=== PATIENT | male | born 1940 | race Caucasian/White ===

== ENCOUNTER 2023-01-09 12:39 | Emergency (ER) | payer MEDICARE, SELFPAY ==
[2023-01-09] VITALS (19 sets, daily range): BP systolic 123–170; BP diastolic 70–99; PULSE 62–75; RESP 13–32; TEMP 36.6; O2SAT 90–100; BMI 21.2
--- NOTE | 2023-01-09 13:09 | PC.NURSE ---
pT PRESENTS WITH INCREASING WEAKNESS OVER PAST WEEK. PT HAS BEEN HOSPITALIZED X 2 THIS YEAR .WITH INITIALLY, COVID PNA. THEN PNA. PT USES OXYGEN AT HOME SINCE HAVING COVID. PT HAS GOOD AIR ENTRY WITH CRACKLES LEFT POSTERIOR BASE
--- NOTE | 2023-01-09 13:19 | XR_ITS ---
The [address] [address] Patient Name: CODI RIVERA MRN: [id number] date: 1940 Sex: M Assigned Patient Location: ER Current Patient Location: ED.MAIN Accession/Order Number: [id number] Exam Date: 01/09/2023 14:20 Report Date: 01/09/2023 14:46 At the request of: KAIDEN REYNOSO Procedure: XR chest 1V EXAMINATION: XR chest 1V HISTORY: Shortness of breath COMPARISON: 08/27/2022, 07/22/2022 TECHNIQUE: AP portable FINDINGS: LUNGS: 1.4 cm nodule left midlung, indeterminate. VASCULATURE: No increased pulmonary vasculature. PLEURA: No pneumothorax, effusion, or pleural thickening. CARDIAC: No cardiomegaly or cardiac silhouette abnormality. MEDIASTINUM: No visible mass or adenopathy. Aortic atherosclerosis BONES: Mild degenerative disc disease and spondylosis without visible acute abnormalities. OTHER: Negative. IMPRESSION: Left lung nodule, indeterminate No focal infiltrate Electronically authenticated by: DANYA GOODWIN Date: 01/09/2023 14:46
--- NOTE | 2023-01-09 13:19 | ECG_ITS ---
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
--- NOTE | 2023-01-09 13:20 | CT_ITS ---
The [address] [address] Patient Name: CODI RIVERA MRN: [id number] date: 1940 Sex: M Assigned Patient Location: ED.MAIN Current Patient Location: Accession/Order Number: [id number] Exam Date: 01/09/2023 15:10 Report Date: 01/09/2023 15:55 At the request of: KAIDEN REYNOSO Procedure: CT abdomen pelvis w con EXAM: CT abdomen pelvis w con HISTORY: jaundice COMPARISON: None. TECHNIQUE: Axial CT images were obtained of the abdomen and pelvis with intravenous contrast. Multiplanar reconstructions were performed. ABDOMEN/PELVIS FINDINGS: Lower Chest: Emphysematous disease present in the lung bases. There is a small hiatal hernia. Liver: Normal enhancement and contour. Biliary/Gallbladder: Unremarkable. Pancreas: Unremarkable. Spleen: Unremarkable. Adrenal Glands: Unremarkable. Kidneys: Bilateral cysts are present in the kidneys, with the dominant cyst in lower pole the right kidney measuring 9.2 cm. A cyst in the medial aspect of the left kidney has intermediate internal density and measures 2.4 cm Gastrointestinal/Peritoneum: No acute abnormality. Mild colonic diverticulosis is present. The appendix is unremarkable. No free air or free fluid. Vascular: Extensive scattered atherosclerotic calcifications are present. Lymph Nodes: No enlarged lymph nodes by CT size criteria. Pelvic Organs: Postoperative changes of a prostatectomy with multiple surgical clips present in the region of the seminal vesicles, which likely have also been resected. Bladder: A rounded lesion is present in the pelvis causing mass effect on the posterior aspect of the bladder wall measuring 2.1 x 2.0 cm. Evaluation is limited due to streak artifact from surgical clips in the region Bones: A few tiny lytic appearing lesions are present throughout the visualized spine and pelvis, especially in the L3 and L4 vertebral bodies. There are extensive multilevel degenerative changes present in the visualized spine, especially at L3-L4. A grade 1 retrolisthesis of L3 on L4 is noted. Soft tissues: Unremarkable. IMPRESSION: 1. Rounded lesion present in the pelvis, between the urinary bladder and rectum, causing mass effect on the posterior wall of the bladder. Evaluation is limited due to streak artifact from surgical clips in the region from prior prostatectomy with removal of the seminal vesicles. In the setting of previous prostate malignancy, this may represent a site of disease recurrence. Other differential considerations include a bladder neoplasm or diverticulum. 2. A few tiny lytic foci are present throughout the spine and pelvis, which may be due to degenerative changes are osteopenia, however, osseous metastatic disease should be considered. 3. Multiple bilateral renal cysts are present. One of the cystic lesions in the left kidney has intermediate density, which may represent a hemorrhagic cyst or solid lesion. Multiphase CT or MRI can be considered for further evaluation. 4. Mild colonic diverticulosis. 5. Emphysematous disease noted in the lung bases. 6. Extensive atherosclerotic calcifications. Electronically authenticated by: CORONA MARIN Date: 01/09/2023 15:55
--- NOTE | 2023-01-09 13:23 | ED.GENADUL1 ---
HPI - General Adult General Chief complaint: Weakness Stated complaint: JAUNDICE IN EYES, OXYGEN LEVELS DROP, WEAKNESS Time Seen by Provider: 01/09/23 13:14 Source: patient Mode of arrival: walk-in History of Present Illness HPI narrative: patient is an 82-year-old male who presents to the emergency department with his for a ten day history of increasing weakness and fatigue. Patient has had his oxygen levels dropped while walking. Since he had Covid several months ago, he has been oxygen dependent at home. states that the patient's oxygen levels are dropping when he is up and moving around, though he does not complain of chest pain and has had no significant recent illness, fevers, chills, cough or sputum production. He has had no peripheral edema. We states her primary concern today is that she thinks the patient is jaundiced, because in the right light he looks yellow . patient denies abdominal pain, nausea, vomiting, diarrhea. No urinary symptoms. states she thinks that the right side of his abdomen is swollen sometimes. Related Data Home Medications Medication Instructions Recorded Confirmed amlodipine 5 mg tablet 5 mg PO QDAY 01/09/23 01/09/23 atorvastatin 40 mg tablet 40 mg PO QDAY 01/09/23 01/09/23 carvedilol 12.5 mg tablet 12.5 mg PO Q12H 01/09/23 01/09/23 lisinopril 10 mg tablet 10 mg PO QDAY 01/09/23 01/09/23 Previous Rx's Medication Instructions Recorded albuterol sulfate 90 mcg/actuation 2 inh inhalation Q4H PRN shortness 01/09/23 aerosol inhaler of breath or wheezing #8.5 grams Allergies Allergy/AdvReac Type Severity Reaction Status Date / Time No Known Drug Allergies Allergy Verified 01/09/23 12:52 Review of Systems ROS Constitutional Denies: fever or chills Cardiovascular Denies: chest pain Respiratory Reports: shortness of breath; Denies: cough Gastrointestinal Denies: abdominal pain, nausea or vomiting Genitourinary Denies: painful urination Musculoskeletal Denies: back pain Integumentary/Breast Denies: rash Endocrine Denies: excessive urination Allergic/Immunologic Denies: hives PFSH PFSH Social History Smoking status: Former smoker Exam Narrative Exam Narrative: Gen.: Awake, alert, in no distress Head: Normocephalic, atraumatic ENT: Moist mucous membranes Respiratory: No respiratory distress, lungs clear bilaterally, oxygen by nasal cannula Cardio: Regular rate and rhythm Gastrointestinal: Abdomen is soft, nondistended and nontender to palpation. No palpable organomegaly or fluid wave Extremities: Moves extremities equally, no edema noted Psych: Normal mood and affect Neuro: No focal neuro deficit Skin: Warm, dry, intact Constitutional Vital Signs - 24 hr 01/09/23 12:52 01/09/23 13:05 01/09/23 13:48 Temperature 97.8 F Pulse Rate Pulse Rate [Monitor] 75 Respiratory Rate 18 Blood Pressure Blood Pressure [Left Arm] 123/90 H Pulse Oximetry 98 90 L 94 L Oxygen Delivery Method Nasal Cannula Nasal Cannula Nasal Cannula Oxygen Delivery Flow Rate 4 3 3 01/09/23 13:00 01/09/23 13:10 01/09/23 13:20 Temperature Pulse Rate 64 65 Pulse Rate [Monitor] Respiratory Rate 24 18 Blood Pressure Blood Pressure [Left Arm] Pulse Oximetry 95 95 95 Oxygen Delivery Method Oxygen Delivery Flow Rate 01/09/23 13:30 01/09/23 13:40 01/09/23 13:50 Temperature Pulse Rate 62 73 63 Pulse Rate [Monitor] Respiratory Rate 32 H 17 13 Blood Pressure Blood Pressure [Left Arm] Pulse Oximetry 95 96 100 Oxygen Delivery Method Oxygen Delivery Flow Rate 01/09/23 14:00 01/09/23 14:10 01/09/23 14:20 Temperature Pulse Rate 64 66 65 Pulse Rate [Monitor] Respiratory Rate 24 15 20 Blood Pressure Blood Pressure [Left Arm] Pulse Oximetry 96 96 96 Oxygen Delivery Method Oxygen Delivery Flow Rate 01/09/23 14:33 01/09/23 14:40 01/09/23 14:48 Temperature Pulse Rate 67 66 68 Pulse Rate [Monitor] Respiratory Rate 14 22 25 H Blood Pressure Blood Pressure [Left Arm] Pulse Oximetry 97 Oxygen Delivery Method Oxygen Delivery Flow Rate 01/09/23 14:49 01/09/23 14:51 Temperature Pulse Rate 70 Pulse Rate [Monitor] Respiratory Rate 17 Blood Pressure 161/99 H 170/87 H Blood Pressure [Left Arm] Pulse Oximetry 97 Oxygen Delivery Method Oxygen Delivery Flow Rate Course Vital Signs Vital signs: Vital Signs Temperature 97.8 F 01/09/23 12:52 Pulse Rate 75 01/09/23 12:52 Respiratory Rate 18 01/09/23 12:52 Blood Pressure 123/90 H 01/09/23 12:52 Pulse Oximetry 98 01/09/23 12:52 Oxygen Delivery Method Nasal Cannula 01/09/23 12:52 Oxygen Delivery Flow Rate 4 01/09/23 12:52 Temperature 97.8 F 01/09/23 12:52 Pulse Rate 70 01/09/23 14:49 Respiratory Rate 17 01/09/23 14:49 Blood Pressure 170/87 H 01/09/23 14:51 Pulse Oximetry 97 01/09/23 14:49 Oxygen Delivery Method Nasal Cannula 01/09/23 13:48 Oxygen Delivery Flow Rate 3 01/09/23 13:48 Medical Decision Making MDM Narrative Medical decision making narrative: patient was treated with gentle IV fluids, breathing treatment in the Emergency Room and remained on supplemental oxygen. 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 Labs are stable, no evidence of transaminitis, pancreatitis or severe anemia. patient was reevaluated by attending physician as CT scan of the abdomen and pelvis shows the patient has possible prostate versus bladder malignancy and also possible metastatic disease of the spine and pelvis. Dr. Garcia had an extensive conversation with the patient and his . At this time they will seek outpatient treatment, I did contact his PCP Dr. Alvarez to make him aware of findings and need for referral from the office. Patient and his will follow-up closely with pulmonology and Dr. Alvarez for further evaluation and treatment. Medical Records Medical records reviewed: Yes I reviewed the patient's medical records Lab Data Lab results reviewed: Yes I reviewed the patient's lab results Labs: Lab Results 01/09/23 01/09/23 Range/Units 13:20 15:50 WBC 5.6 (4.0-11.0) 10^3/uL RBC 3.76 L (4.70-6.10) 10^6/uL Hgb 12.0 L (14.0-18.0) g/dL Hct 36.3 L (42.0-54.0) % MCV 96.5 H (80.0-94.0) fL MCH 31.9 (25.9-34.0) pg MCHC 33.1 (29.9-35.2) g/dL RDW 15.7 H (11.0-15.0) % Plt Count 227 (150-450) 10^3/uL MPV 9.0 L (9.5-13.5) fL Neut % (Auto) 51.0 (43.0-75.0) % Lymph % (Auto) 31.0 (20.5-60.0) % [place] % (Auto) 13.7 H (1.7-12.0) % Eos % (Auto) 3.4 (0.9-7.0) % Baso % (Auto) 0.5 (0.2-2.0) % Neut # (Auto) 2.8 (1.4-6.5) 10^3/uL Lymph # (Auto) 1.7 (1.2-3.8) 10^3/uL [place] # (Auto) 0.8 (0.3-0.8) 10^3/uL Eos # (Auto) 0.2 (0.0-0.7) 10^3/uL Baso # (Auto) 0.0 (0.0-0.1) 10^3/uL Abs Immat Gran (auto) 0.02 (0.00-0.03) 10^3/uL Imm/Tot Granulo (auto) 0.4 (0.0-0.5) % PT 11.0 (9.0-11.6) sec INR 1.04 Sodium 139 (136-145) mmol/L Potassium 4.2 (3.5-5.1) mmol/L Chloride 105 (98-107) mmol/L Carbon Dioxide 26.1 (21.0-32.0) mmol/L Anion Gap 12.1 BUN 17.0 (7.0-18.0) mg/dL Creatinine 1.24 (0.70-1.30) mg/dL Est GFR ( Amer) >60 (>=60) Est GFR (Non-Af Amer) 56 L (>=60) BUN/Creatinine Ratio 13.7 Glucose 97 (74-106) mg/dL Lactate 1.6 (0.4-2.0) mmol/L Calcium 8.7 (8.5-10.1) mg/dL Total Bilirubin 0.6 (0.2-1.0) mg/dL AST 25 (15-37) U/L ALT 37 (16-63) U/L Alkaline Phosphatase 108 (46-116) U/L Troponin I High Sens 11.4 (4.0-76.1) pg/mL NT-Pro-B Natriuret Pep 1173.0 (<=1800.0) pg/mL Total Protein 7.0 (6.4-8.2) g/dL Albumin 2.5 L (3.4-5.0) g/dL Globulin 4.5 g/dL Albumin/Globulin Ratio 0.6 Lipase 61.0 L (73.0-393.0) U/L Urine Color Yellow (YELLOW) Urine Clarity Clear (CLEAR) Urine pH 6.0 (5.0-9.0) Ur Specific [place] 1.015 (1.005-1.025) Urine Protein Negative (NEG/TRACE) mg/dL Urine Glucose (UA) Negative (NEGATIVE) mg/dL Urine Ketones Negative (NEGATIVE) mg/dL Urine Occult Blood Negative (NEGATIVE) Urine Nitrite Negative (NEGATIVE) Urine Bilirubin Negative (NEGATIVE) Urine Urobilinogen 0.2 (0.2-1.0) EU/dL Ur Leukocyte Esterase Negative (NEGATIVE) Imaging Data CT scan - abdomen: Attestation: I have reviewed the pertinent imaging results. Radiologist's impression: Procedure: CT abdomen pelvis w con EXAM: CT abdomen pelvis w con HISTORY: jaundice COMPARISON: None. TECHNIQUE: Axial CT images were obtained of the abdomen and pelvis with intravenous contrast. Multiplanar reconstructions were performed. ABDOMEN/PELVIS FINDINGS: Lower Chest: Emphysematous disease present in the lung bases. There is a small hiatal hernia. Liver: Normal enhancement and contour. Biliary/Gallbladder: Unremarkable. Pancreas: Unremarkable. Spleen: Unremarkable. Adrenal Glands: Unremarkable. Kidneys: Bilateral cysts are present in the kidneys, with the dominant cyst in lower pole the right kidney measuring 9.2 cm. A cyst in the medial aspect of the left kidney has intermediate internal density and measures 2.4 cm Gastrointestinal/Peritoneum: No acute abnormality. Mild colonic diverticulosis is present. The appendix is unremarkable. No free air or free fluid. Vascular: Extensive scattered atherosclerotic calcifications are present. Lymph Nodes: No enlarged lymph nodes by CT size criteria. Pelvic Organs: Postoperative changes of a prostatectomy with multiple surgical clips present in the region of the seminal vesicles, which likely have also been resected. Bladder: A rounded lesion is present in the pelvis causing mass effect on the posterior aspect of the bladder wall measuring 2.1 x 2.0 cm. Evaluation is limited due to streak artifact from surgical clips in the region Bones: A few tiny lytic appearing lesions are present throughout the visualized spine and pelvis, especially in the L3 and L4 vertebral bodies. There are extensive multilevel degenerative changes present in the visualized spine, especially at L3-L4. A grade 1 retrolisthesis of L3 on L4 is noted. Soft tissues: Unremarkable. IMPRESSION: 1. Rounded lesion present in the pelvis, between the urinary bladder and rectum, causing mass effect on the posterior wall of the bladder. Evaluation is limited due to streak artifact from surgical clips in the region from prior prostatectomy with removal of the seminal vesicles. In the setting of previous prostate malignancy, this may represent a site of disease recurrence. Other differential considerations include a bladder neoplasm or diverticulum. 2. A few tiny lytic foci are present throughout the spine and pelvis, which may be due to degenerative changes are osteopenia, however, osseous metastatic disease should be considered. 3. Multiple bilateral renal cysts are present. One of the cystic lesions in the left kidney has intermediate density, which may represent a hemorrhagic cyst or solid lesion. Multiphase CT or MRI can be considered for further evaluation. 4. Mild colonic diverticulosis. 5. Emphysematous disease noted in the lung bases. 6. Extensive atherosclerotic calcifications. Electronically authenticated by: CORONA MARIN Date: 01/09/2023 15:55 ECG Data Attestation: ?I have reviewed the pertinent ECG results. (normal sinus rhythm at a rate of sixty-three, no acute ST elevation or ectopy. EKG reviewed by attending physician) Discharge Plan Discharge Chief Complaint: Weakness Clinical Impression: Weakness, COPD (chronic obstructive pulmonary disease), Bladder mass Patient Disposition: Home, Self-Care Time of Disposition Decision: 16:45 Condition: Good Prescriptions / Home Meds: New albuterol sulfate 90 mcg/actuation HFA aerosol inhaler 2 inh inhalation Q4H PRN (Reason: shortness of breath or wheezing) Qty: 8.5 0RF No Action amlodipine 5 mg tablet 5 mg PO QDAY atorvastatin 40 mg tablet 40 mg PO QDAY carvedilol 12.5 mg tablet 12.5 mg PO Q12H lisinopril 10 mg tablet 10 mg PO QDAY Instructions: COPD (Chronic Obstructive Pulmonary Disease) (ED), Weakness (ED) Stand Alone Forms: Portal Instructions Referrals: Louis Alvarez MD [Primary Care Provider] - As soon as possible
[2023-01-09] MEDS: 0.9 % SODIUM CHLORIDE 1,000 ML 100 ML IV (13:32)
[2023-01-09] MEDS: ALBUTEROL SULFATE 2.5 MG/3 ML VIAL NEB IH (13:45)
[2023-01-09 13:57] LABS: Basophils Percent Auto 0.5 % (0.2-2.0); Eosinophils Absolute Auto 0.2 10^3/uL (0.0-0.7); Eosinophils Percent Auto 3.4 % (0.9-7.0); Hematocrit 36.3 % (42.0-54.0); Immature Granulocytes Abs Auto 0.02 10^3/uL (0.00-0.03); Immature Granulocytes Pct Auto 0.4 % (0.0-0.5); Lymphocytes Absolute Auto 1.7 10^3/uL (1.2-3.8); Mean Corpuscular HGB Conc 33.1 g/dL (29.9-35.2); Mean Corpuscular Hemoglobin 31.9 pg (25.9-34.0); Mean Corpuscular Volume 96.5 fL (80.0-94.0); Monocytes Absolute Auto 0.8 10^3/uL (0.3-0.8); Monocytes Percent Auto 13.7 % (1.7-12.0); Neutrophils Absolute Auto 2.8 10^3/uL (1.4-6.5); Platelet Count 227 10^3/uL (150-450); Red Blood Count 3.76 10^6/uL (4.70-6.10); Red Cell Distribution Width 15.7 % (11.0-15.0); White Blood Count 5.6 10^3/uL (4.0-11.0)
[2023-01-09 14:19] LABS: Alanine Aminotransferase 37 U/L (16-63); Albumin Globulin Ratio 0.6; Albumin Level 2.5 g/dL (3.4-5.0); Alkaline Phosphatase 108 U/L (46-116); Anion Gap 12.1; Aspartate Amino Transferase 25 U/L (15-37); BUN Creatinine Ratio 13.7; Bilirubin Total 0.6 mg/dL (0.2-1.0); Calcium 8.7 mg/dL (8.5-10.1); Carbon Dioxide 26.1 mmol/L (21.0-32.0); Chloride 105 mmol/L (98-107); Estimated GFR (African America >60 (>=60); Estimated GFR (Non-African Ame 56 (>=60); Globulin 4.5 g/dL; Glucose 97 mg/dL (74-106); Potassium 4.2 mmol/L (3.5-5.1); Sodium 139 mmol/L (136-145); Troponin I High Sensitivity 11.4 pg/mL (4.0-76.1)
[2023-01-09 14:21] LABS: Lactate/Lactic Acid 1.6 mmol/L (0.4-2.0)
[2023-01-09 14:23] LABS: INR 1.04
[2023-01-09 15:59] LABS: Bilirubin Urine NEGATIVE (NEGATIVE); Blood Urine NEGATIVE (NEGATIVE); Clarity Urine CLEAR (CLEAR); Color Urine YELLOW (YELLOW); Glucose Urine UA NEGATIVE (NEGATIVE); Ketones Urine NEGATIVE (NEGATIVE); Leukocyte Esterase Urine NEGATIVE (NEGATIVE); Nitrite Urine NEGATIVE (NEGATIVE); Protein Urine NEGATIVE (NEG/TRACE); Specific Gravity Urine 1.015 (1.005-1.025); Urobilinogen Urine 0.2 EU/dL (0.2-1.0)
[2023-01-09 16:01] LABS: Urine Microscopic Indicated NO
--- NOTE | 2023-01-09 16:43 | PC.NURSE ---
upon standing and urinating, patient desaturates into low 80s. aware
== END 2023-01-09 17:17 | disposition home or self-care (01) ==
PROVIDERS: Physician Assistant; Emergency Provider Emergency Medicine Emergency Medical Services; PCP Family Medicine
DX: R53.1 Weakness (principal); J44.9 Chronic obstructive pulmonary disease, unspecified; N32.9 Bladder disorder, unspecified; Z86.16 Personal history of COVID-19; Z99.81 Dependence on supplemental oxygen; Z79.899 Other long term (current) drug therapy; Z87.891 Personal history of nicotine dependence; R06.02 Shortness of breath
CPT/HCPCS: 36415; 71045; 74177; 80053; 81003; 83605; 83690; 83880; 84484; 85025; 85610; 93005; 94640; 99285; Q9967

== ENCOUNTER 2023-01-13 08:23 | Outpatient (OUT) | payer MEDICARE, SELFPAY ==
[2023-01-13 11:29] LABS: Prostate Specific Antigen Scrn <0.13 ng/mL (<=4.00)
== END 2023-01-13 08:24 | disposition home or self-care (01) ==
LOC: LAB 08:25
PROVIDERS: PCP Family Medicine; Visit Provider Family Medicine
DX: Z12.5 Encounter for screening for malignant neoplasm of prostate (principal)
CPT/HCPCS: 36415; G0103

== ENCOUNTER 2023-04-06 07:44 | Outpatient (OUT) | payer MEDICARE, SELFPAY ==
[2023-04-06 08:25] LABS: Basophils Percent Auto 0.3 % (0.2-2.0); Eosinophils Absolute Auto 0.5 10^3/uL (0.0-0.7); Eosinophils Percent Auto 7.5 % (0.9-7.0); Hemoglobin 13.5 g/dL (14.0-18.0); Immature Granulocytes Abs Auto 0.01 10^3/uL (0.00-0.03); Immature Granulocytes Pct Auto 0.1 % (0.0-0.5); Lymphocytes Absolute Auto 2.4 10^3/uL (1.2-3.8); Lymphocytes Percent Auto 34.2 % (20.5-60.0); Mean Corpuscular HGB Conc 32.1 g/dL (29.9-35.2); Mean Corpuscular Hemoglobin 32.7 pg (25.9-34.0); Mean Corpuscular Volume 101.7 fL (80.0-94.0); Mean Platelet Volume 8.7 fL (9.5-13.5); Monocytes Absolute Auto 0.8 10^3/uL (0.3-0.8); Neutrophils Absolute Auto 3.2 10^3/uL (1.4-6.5); Neutrophils Percent Auto 45.9 % (43.0-75.0); Platelet Count 168 10^3/uL (150-450); Red Blood Count 4.13 10^6/uL (4.70-6.10); Red Cell Distribution Width 14.4 % (11.0-15.0); White Blood Count 6.9 10^3/uL (4.0-11.0)
[2023-04-06 09:12] LABS: Alanine Aminotransferase 22 U/L (16-63); Albumin Level 3.3 g/dL (3.4-5.0); Alkaline Phosphatase 95 U/L (46-116); Anion Gap 9.6; Aspartate Amino Transferase 15 U/L (15-37); BUN Creatinine Ratio 16.7; Bilirubin Direct 0.2 mg/dL (0.0-0.2); Bilirubin Total 0.7 mg/dL (0.2-1.0); Calcium 9.2 mg/dL (8.5-10.1); Carbon Dioxide 31.2 mmol/L (21.0-32.0); Chloride 103 mmol/L (98-107); Chol HDL Ratio 1.9; Cholesterol 116 mg/dL (<=200); Estimated GFR (African America >60 (>=60); Estimated GFR (Non-African Ame >60 (>=60); Globulin 3.4 g/dL; Glucose 97 mg/dL (74-106); HDL Cholesterol 61 mg/dL (40-60); Potassium 4.8 mmol/L (3.5-5.1); Sodium 139 mmol/L (136-145); Total Protein 6.7 g/dL (6.4-8.2); Triglycerides 38 mg/dL (<=150); VLDL CHOLESTEROL 7.6 mg/dL
== END 2023-04-06 07:45 | disposition home or self-care (01) ==
LOC: LAB 07:47
PROVIDERS: PCP Family Medicine; Visit Provider Family Medicine
DX: I10 Essential (primary) hypertension (principal); I25.10 Atherosclerotic heart disease of native coronary artery without angina pectoris; E78.5 Hyperlipidemia, unspecified; Z79.899 Other long term (current) drug therapy; Z51.81 Encounter for therapeutic drug level monitoring
CPT/HCPCS: 36415; 80048; 80061; 80076; 85025

== ENCOUNTER 2023-04-24 07:48 | Outpatient (OUT) | payer MEDICARE, SELFPAY ==
--- NOTE | 2023-04-24 07:54 | US_ITS ---
The [address] [address] Patient Name: CODI RIVERA MRN: [id number] date: 1940 Sex: M Assigned Patient Location: US Current Patient Location: US Accession/Order Number: [id number] Exam Date: 04/24/2023 08:03 Report Date: 04/24/2023 08:38 At the request of: MANUEL KOCH Procedure: US abdominal aortic aneurysm EXAM: US abdominal aortic aneurysm HISTORY: . Abdominal Aortic Aneurysm I71.40 . COMPARISON: None. TECHNIQUE: Esteban scale and color imaging was performed FINDINGS: Scanning of the abdominal aorta demonstrates a proximal aorta to measure 2.6 x 2.5 cm, mid aorta 2 x 2.4 cm, and the distal aorta 1.6 x 2 cm. Color-flow is noted throughout the aorta. Atherosclerotic changes of the thoracic aorta are noted. Right iliac measures 1.4 cm and left iliac 1.3 cm. US/US abdominal aortic aneurysm IMPRESSION: 1. No aneurysmal dilatation of the abdominal aorta. 2. Atherosclerotic changes of the abdominal aorta. Electronically authenticated by: DANYA SONI Date: 04/24/2023 08:38
--- NOTE | 2023-04-24 09:34 | CA_ITS ---
Patient: CODI RIVERA Exam Date: 04/24/2023 : 1940 Gender:M Ordering : DR MANUEL LENRER M.D. Admission #: [id number] Family : Order #: [id number] CLICK HERE TO VIEW EXAM ECHOCARDIOGRAM REPORT PROCEDURE: CA ECHO DOPPLER COMPLETE INDICATIONS: Nonrheumatic Mitral insufficiency COMPARISON: None. DESCRIPTION: COMPLETE ECHOCARDIOGRAM Real-time transthoracic echocardiography with 2D, M-mode, spectral and color flow Doppler performed. QUALITY: Technical quality was good. LEFT VENTRICLE: Normal chamber size. Borderline left ventricular hypertrophy. LV EF: Global left ventricular systolic function is normal. Calculated left ventricular ejection fraction is 62% DIASTOLIC: Grade I diastolic dysfunction. ATRIAL SEPTUM: Inadequately seen. LEFT ATRIUM: Severe dilatation. RIGHT ATRIUM: Moderate dilatation. RIGHT VENTRICLE: Mild dilatation. Normal right ventricular systolic function. TRICUSPID VALVE: Normal mobility and thickness. Mild to moderate regurgitation. Moderate pulmonary hypertension. RVSP 52 mmHg MITRAL VALVE: Normal mobility and thickness. No evidence of mitral valve stenosis. Mild mitral annular calcification. Mild mitral regurgitation. AORTIC VALVE: Normal trileaflet appearance. No visible sclerosis. Normal leaflet mobility. No evidence of aortic valve stenosis. No aortic regurgitation. AORTIC ROOT: Normal diameter and appearance. PULMONIC VALVE: Normal thickness and mobility. No stenosis. Trivial regurgitation. PERICARDIUM: No evidence of pericardial effusion. IVC: Collapses with inspirations. Normal size. CONCLUSION: 1. Global left ventricular systolic function is normal; visually estimated ejection fraction 60 to 65% 2. Borderline increase in left ventricular wall thickness 3. Grade 1, mild diastolic dysfunction 4. Biatrial enlargement 5. Right ventricle is mildly dilated with normal systolic function 6. Mild to moderate tricuspid regurgitation; moderately elevated right ventricular systolic pressure 7. Mild mitral regurgitation Adult Echocardiography Procedure Report Left Ventricle LVEDD (3.7 - 5.6 cm): 4.63 cm LVESD (2.2 - 4.0 cm): 3.71 cm LVIVS thickness (0.6 - 1.2 cm): 1.09 cm LVPW thickness (0.5 - 1.0 cm): 1.00 cm e': 0.11 m/s E - e': 5.12 LVOT Max Gradient: 2.20 mm[Hg] LVOT Area (cm2): 0.74 m/s Peak Velocity (LVOT): 0.74 m/s Mean Velocity (LVOT): 0.51 m/s LVOT Diameter 1.97 cm Left Ventricular Ejection Fraction: 61.58 % Left Atrium LA Volume Index (2D A2C): 59.12 ml/m2 Left Atrium Systolic Dimension: 4.00 cm Mitral Valve MV E to A Ratio: 0.68 Mitral Valve A-Wave Peak Velocity: 0.81 m/s Mitral Valve E-Wave Peak Velocity: 0.55 m/s Right Ventricle RV Internal Diastolic Dimension: 4.00 cm Aorta AO Root Diam: 3.23 cm Ascending Ao Diam: 2.90 cm Aortic Valve AoV Area (Peak Torin): 2.03 cm2, 2.03 cm2 AoV Area (VTI): 2.06 cm2, 2.06 cm2 Peak Velocity(Antegrade Flow): 1.11 m/s Peak Gradient(Antegrade Flow): 4.96 mm[Hg] Mean Velocity(Antegrade Flow): 0.77 m/s Mean Gradient(Antegrade Flow): 2.73 mm[Hg] Velocity Time Integral: 30.74 cm Tricuspid Valve Peak Velocity (Regurgitant Flow): 3.87 m/s, 3.26 m/s, 3.41 m/s Pulmonic Valve Mean Gradient: 1.06 mm[Hg], 2.10 mm[Hg] Mean Velocity: 0.49 m/s, 0.66 m/s Peak Velocity: 0.89 m/s Peak Gradient: 2.00 mm[Hg], 4.53 mm[Hg] Right Atrium Right Atrium Systolic Pressure: 73.06 ml, 73.06 ml Dictated by: Manuel Lerner M.D. on 04/24/2023 at 15:31 Approved by: Manuel Lerner M.D. on 04/24/2023 at 15:35
== END 2023-04-24 07:49 | disposition home or self-care (01) ==
LOC: US 07:48
PROVIDERS: PCP Family Medicine; Visit Provider Internal Medicine Interventional Cardiology
DX: I71.40 Abdominal aortic aneurysm, without rupture, unspecified (principal); I08.1 Rheumatic disorders of both mitral and tricuspid valves
CPT/HCPCS: 76775; 93306